=== PATIENT | male | born 2005 | race Caucasian/White ===

== ENCOUNTER 2025-04-12 12:42 | Emergency (ER) | payer BC, SELFPAY ==
[2025-04-12 12:45] VITALS: BP 124/72; PULSE 72; TEMP 36.8; O2SAT 98; BMI 18.4
--- NOTE | 2025-04-12 13:18 | ED_ITS ---
HPI - Back Pain/Injury General: Chief Complaint: Back Pain/Injury Stated Complaint: lower back pain Time Seen by Provider: 04/12/25 12:47 Source: patient Mode of arrival: ambulatory Limitations: no limitations History of Present Illness: Patient is a 19-year-old male who presents to ED today for evaluation of lower back pain and a possible hematoma. 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 States he immediately noticed some lower back pain but states that is not uncommon as he is often thrown from bulls. He states about 2 days ago he noticed a lump to his lower back and decided to seek medical evaluation. He is still having some discomfort to his lower back. He has been ambulatory without difficulty or assistance since the injury. He is not complaining of numbness, tingling, loss of sensation to his legs or leg weakness. He is not complaining of abdominal pain. MD elicited complaint: back pain Pertinent past history: recent trauma Onset (ago): day(s) Timing: constant Severity: moderate Similar Symptoms Previously: No Location: lumbar spine Radiation: none Relieving factors: none Context: fall Associated symptoms: Reports no associated symptoms; Deny abdominal pain or fever(s) Work related injury: No Related Data Allergies Allergy/AdvReac Type Severity Reaction Status Date / Time fentanyl Allergy Unknown Verified 04/12/25 12:50 Review of Systems Const: Denies: fever(s) Card: Denies: chest pain Resp: Denies: dyspnea GI: Denies: abdominal pain Musc: Reports: back pain; Denies: neck pain, extremity pain or joint pain Neuro: Denies: headache(s) or dizziness Physical Exam Const: COMMON NORMALS: no acute distress, average body habitus, patient oriented x3, no limitations, healthy appearing, alert and well nourished Neck/C-Spine: COMMON NORMALS: full ROM CERVICAL SPINE: No Cervical spine tenderness Chest: COMMONS NORMALS: normal inspection of the chest and normal palpation of entire chest wall Resp: COMMON NORMALS: normal respiratory effort and clear to auscultation bilaterally AUSCULTATION: clear to auscultation bilaterally Cardio: COMMON NORMALS: regular rate and regular rhythm RATE: regular rate RHYTHM: regular rhythm GI: COMMON NORMALS: Normal to inspection, nondistended, normoactive bowel sounds present, Soft to palpation, non-tender and no masses PALPATION: Yes Soft to palpation Back/Pelvis: COMMON NORMALS: thoraco-lumbar ROM normal and straight leg raise negative bilaterally THORACIC SPINE/UPPER BACK: No thoracic spinal tenderness LUMBAR SPINE/LOWER BACK: Yes lumbar spinal tenderness and Yes other soft tissue findings (lower lumbar hematoma; no erythema/ecchymosis present) PELVIS: Yes buttocks normal and No sciatic notch tenderness SACROILIAC JOINTS: Yes SI joints normal SACRUM: no tenderness COCCYX: no tenderness Extremity: GENERAL: Yes normal exam except as noted Neuro: COMMON NORMALS: patient oriented x3, moves all extremities, no focal motor deficits, no sensory deficits noted and gait normal SENSORIUM/ORIENTATION: Yes alert GAIT: Yes Normal gait present MOTOR EXAM: 5/5 motor strength present throughout Course Vital Signs: Vital signs: Vital Signs Temperature 98.2 F 04/12/25 12:45 Pulse Rate 72 04/12/25 12:45 Blood Pressure 124/72 04/12/25 12:45 Pulse Oximetry 98 04/12/25 12:45 Oxygen Delivery Me thod Room Air 04/12/25 12:45 MDM - Back Pain/Injury Medical Decision Making XR of lumbar spine obtained and negative for acute bony injury. Area and concern most likely is a hematoma. Less likely due to provided history would be sebaceous cyst, lipoma, abscess, seroma. Conservative therapies discussed. He can follow-up with primary care if symptoms do not seem to improve over the next 1 to 2 weeks. Labs Radiology Impressions Lumbar Spine X-Ray 04/12/25 13:27 Impression: Negative lumbar spine. All radiology interpretation(s) finalized by discharge Discharge Plan Discharge Patient Disposition: Home Clinical Impression: Lumbar muscle hematoma Qualifiers: Encounter type: initial encounter Qualified Code(s): S30.0XXA - Contusion of lower back and pelvis, initial encounter Condition: Stable Discharge Orders: Discharge ED (Routine); Ordered 04/12/25 Ordered By: Reema Boston Patient Instructions: Patient Portal & Francesca Instructions Activity Restrictions/Additional Instructions: As we discussed, x-rays of your lower back were normal. You may apply ice to the area of swelling. Please follow-up with primary care in 1 to 2 weeks if pain is not improving or if area of swelling is not starting to decrease. 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
--- NOTE | 2025-04-12 13:27 | XR_ITS ---
WS: [id number] Lumbar spine, AP and lateral views, 04/12/2025 Clinical Data: low back injury/fell from bull, hematoma Comparison: None. Findings: No compression fractures or subluxation is seen. No disc space narrowing is seen. The transverse processes and SI joints are normal. XR/XR lumbar spine 2-3V* [id number] Impression: Negative lumbar spine.
== END 2025-04-12 14:05 | disposition home or self-care (01) ==
PROVIDERS: Emergency Provider Physician Assistant
DX: S30.0XXA Contusion of lower back and pelvis, initial encounter (principal); V80.018A Animal-rider injured by fall from or being thrown from other animal in noncollision accident, initial encounter
CPT/HCPCS: 72100; 99283

== ENCOUNTER 2025-05-06 11:37 | Emergency (ER) | payer BC, SELFPAY ==
[2025-05-06 12:13] VITALS: BP 134/75; PULSE 76; RESP 16; TEMP 36.7; O2SAT 100; BMI 22.1
--- NOTE | 2025-05-06 12:29 | ED_ITS ---
HPI - Abdominal Pain 2 General: Chief Complaint: Abdominal Pain Stated Complaint: hit in the Stomach by a pipe Time Seen by Provider: 05/06/25 11:38 History of Present Illness: 19-year-old male who was hit by a pipe i n the right upper quadrant. 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 As the cow backed up it created a lever with that type and the end nearest him swung around and caught him in the right upper quadrant. He was knocked to the ground. Is complaining of some moderate abdominal discomfort he has not had any vomiting. He has been very nauseous. Denies any chest pain or abdominal pain denies any other injuries when he was thrown to the ground he did not strike his head and he did not lose consciousness Associated Symptoms: Reports nausea; Denies chills, coffee ground emesis, dysuria, fever(s), hematemesis and vomiting Related Data Home Medications ?Medication ?Instructions ?Recorded ?Confirmed No Known Home Medications 05/06/2504/25 Allergies Allergy/AdvReac Type Severity Reaction Status Date / Time fentanyl Allergy Unknown Verified 04/12/25 12:50 Review of Systems 2 Const: Denies: fever(s) or chills Card: Denies: chest pain Resp: Denies: dyspnea GI: Reports: abdominal pain and nausea; Denies: vomiting, hematemesis or coffee ground emesis : Denies: dysuria, urinary frequency or urinary urgency Musc: Denies: neck pain or back pain Skin/Breast: Denies: rash Physical Exam 2 Const: GENERAL APPEARANCE: cooperative ORIENTATION/CONSCIOUSNESS: Yes awake, Yes oriented to person, Yes oriented to place and Yes oriented to time HENMT: COMMON NORMALS: normocephalic, atraumatic and hearing grossly normal bilaterally HEAD & SCALP: normocephalic and atraumatic Resp: COMMON NORMALS: normal respiratory effort, No retractions, No use of accessory muscles and clear to auscultation bilaterally AUSCULTATION: clear to auscultation bilaterally Cardio: COMMON NORMALS: regular rate, regular rhythm and No murmurs present (Cardio) RATE: regular rate RHYTHM: regular rhythm GI: COMMON NORMALS: No hepatosplenomegaly present AUSCULTATION: Yes normoactive bowel sounds PALPATION: Yes Tenderness to palpation present (GI) (Diffuse), Yes Guarding due to palpation present (GI) and Yes No hepatosplenomegaly present OTHER: No bruising or laceration to the abdominal wall Extremity: COMMON NORMALS: normal to inspection, capillary refill normal, no clubbing, cyanosis or edema, no calf tenderness and no pedal edema Neuro: SENSORIUM/ORIENTATION: Yes oriented to person, Yes oriented to place and Yes oriented to time Skin: COMMON NORMALS: no rashes or lesions noted GENERAL SKIN EXAM: no rashes or lesions noted Course 2 Vital Signs: Vital signs: Vital Signs Temperature 98.1 F 05/06/25 12:13 Pulse Rate 71 05/06/25 14:45 Respiratory Rate 16 05/06/25 12:13 Blood Pressure 125/61 05/06/25 14:45 Pulse Oximetry 96 05/06/25 14:45 Oxygen Delivery Me thod Room Air 05/06/25 12:13 MDM - Abdominal Pain Medical Decision Making Patient has acute surgical abdomen on exam CT shows grade 4 laceration of the liver. He was given TXA typed and crossed and remained stable while here. Made arrangements for transfer to trauma services at [facility] in [place]. Patient is stable to time of transfer he is received initial TXA loading dose and is receiving infusion. Patient transferred via air ambulance. Medical Records I reviewed the patient's medical records. Lab Data I reviewed the patient's lab results. 05/06/25 12:37 05/06/25 12:37 Labs/Radiology: Radiology Impressions Abdomen/Pelvis CT 05/06/25 12:32 IMPRESSION: 1. Extensive complex RIGHT hepatic liver laceration approximately grade 4 with laceration completely traversing the RIGHT hepatic lobe. Small punctate areas of active hemorrhage peripherally involving the hepatic veins. Portal vein appears intact. 2. Small amount of blood products at the tip of the RIGHT hepatic lobe. Moderate amount of free fluid in the pelvis presumably hemorrhage. 3. No visualized rib fractures. Edema along the RIGHT abdominal wall laterally. 4. Normal spleen. 5. No other acute findings Notified Donavan Palomo DO at 05/06/2025 1:54 PM. Laboratory Results WBC 14.62 10^3/uL (4.5-13.0) H 05/06/25 12:37 RBC 4.63 10^6/uL (3.85-5.65) 05/06/25 12:37 Hgb 13.40 g/dL (13.2-15.6) 05/06/25 12:37 Hct 40.7 % (37-53) 05/06/25 12:37 MCV 87.9 fl (82-101) 05/06/25 12:37 MCH 28.9 pg (27-33) 05/06/25 12:37 MCHC 32.9 g/dL (30-55) 05/06/25 12:37 RDW 13.3 % (12.1-15.1) 05/06/25 12:37 Plt Count 234 10^3/cmm (157-399) 05/06/25 12:37 MPV 10.6 fL (7.4-10.4) H 05/06/25 12:37 Neut % (Auto) 81.3 % 05/06/25 12:37 Lymph % (Auto) 9.4 % 05/06/25 12:37 Runnels % (Auto) 8.0 % 05/06/25 12:37 Eos % (Auto) 0.5 % 05/06/25 12:37 Baso % (Auto) 0.3 % 05/06/25 12:37 Neut # (Auto) 11.88 10^3/uL (1.8-8.0) H 05/06/25 12:37 Lymph # (Auto) 1.4 10^3/uL (1.5-6.5) L 05/06/25 12:37 Runnels # (Auto) 1.2 10^3/uL (0.2-0.9) H 05/06/25 12:37 Eos # (Auto) 0.1 10^3/uL (0.0-0.8) 05/06/25 12:37 Baso # (Auto) 0.1 10^3/uL (0.0-0.1) 05/06/25 12:37 Nucleated RBC % (auto) 0 % 05/06/25 12:37 Nucleated RBCs # 0.0 /100WBC 05/06/25 12:37 Sodium 139 mmol/L (136-145) 05/06/25 12:37 Potassium 3.6 mmol/L (3.5-5.1) 05/06/25 12:37 Chloride 99 mmol/L (98-107) 05/06/25 12:37 Carbon Dioxide 23 mmol/L (22-29) 05/06/25 12:37 Anion Gap 20.6 (5-19) H 05/06/25 12:37 BUN 7 mg/dL (6-20) 05/06/25 12:37 Creatinine 0.9 mg/dL (0.7-1.2) 05/06/25 12:37 GFR Calculation 108.7 mL/min (90-130) 05/06/25 12:37 Glucose 135 mg/dL (65-115) H 05/06/25 12:37 Calculated Osmolality 288 mOsm/kg (285-295) 05/06/25 12:37 Calcium 9.1 mg/dL (8.5-10.5) 05/06/25 12:37 Total Bilirubin 0.6 mg/dL (0.15-1.2) 05/06/25 12:37 AST 136 U/L (0-40) H 05/06/25 12:37 ALT 130 U/L (0-41) H 05/06/25 12:37 Alkaline Phosphatase 112 U/L (40-130) 05/06/25 12:37 Total Protein 7.3 g/dL (6.6-8.7) 05/06/25 12:37 Albumin 4.5 g/dL (3.5-5.2) 05/06/25 12:37 Globulin 2.8 g/dL (1.3-4.6) 05/06/25 12:37 Lipase 26 U/L (13-60) 05/06/25 12:37 Urine Color Yellow (Yellow) 05/06/25 13:35 Urine Appearance Clear (CLEAR) 05/06/25 13:35 Urine pH 6.5 (5-7) 05/06/25 13:35 Ur Specific Dougherty 1.041 (1.005-1.030) H 05/06/25 13:35 Urine Protein 1+ (Negative) A 05/06/25 13:35 Urine Glucose (UA) Negative (Normal) 05/06/25 13:35 Urine Ketones Trace (Negative) 05/06/25 13:35 Urine Blood Non-haemolysed trace (Negative) 05/06/25 13:35 Urine Nitrate Negative (Negative) 05/06/25 13:35 Urine Bilirubin Negative (Negative) 05/06/25 13:35 Urine Urobilinogen 1.0 mg/dL (Negative) 05/06/25 13:35 Ur Leukocyte Esterase Negative (Negative) 05/06/25 13:35 Urine RBC 3-5 /hpf (0-2) 05/06/25 13:35 Urine WBC 0-5 /hpf (0-5) 05/06/25 13:35 Ur Squamous Epith Cells 0-5 /hpf (0-5) 05/06/25 13:35 Amorphous Sediment Not Reportable 05/06/25 13:35 Urine Bacteria None seen /hpf (NONE) 05/06/25 13:35 Hyaline Casts 4.11 /lpf 05/06/25 13:35 Blood Type A Positive 05/06/25 13:55 Rho(D) Type Rh positive 05/06/25 13:55 Antibody Screen Negative 05/06/25 13:55 All radiology interpretation(s) finalized by discharge Discharge Plan Discharge Patient Disposition: Xfer Short-Term Hosp Clinical Impression: Liver laceration, grade IV, without open wound into cavity Condition: Stable Print Language: Setswana Coding 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
--- NOTE | 2025-05-06 12:32 | CT_ITS ---
WS: [id number] CT ABDOMEN PELVIS TECHNIQUE: Contrast-enhanced CT of the abdomen and pelvis with coronal and sagittal reformatted images. CLINICAL INFORMATION: abd pain/trauma COMPARISON: None. DLP: 318.[address] scans at [facility] use at least one of these dose optimization techniques: automated exposure control; mA and/or kV adjustment per patient size (includes targeted exams where dose is matched to clinical indication); or iterative reconstruction. FINDINGS: Extensive right hepatic laceration extending from the capsule RIGHT hepatic lobe to the gallbladder fossa. The laceration completely traverses the RIGHT hepatic lobe. Small punctate areas of hemorrhage are seen involving the hepatic veins peripherally in the RIGHT hepatic lobe. Portal vein appears grossly intact. Edema within the RIGHT abdominal wall. Small amount of blood products at the tip of the RIGHT hepatic lobe with moderate free fluid presumed blood products in the pelvis. Normal spleen. No visualized RIGHT rib fractures. Lung bases are well aerated. Normal GE junction. Normal pancreatic parenchymal enhancement. Portal veins and splenic vein appear patent. Normal caliber abdominal aorta. Normal renal parenchymal enhancement. CT/CT abdomen pelvis w con* [id number] IMPRESSION: 1. Extensive complex RIGHT hepatic liver laceration approximately grade 4 with laceration completely traversing the RIGHT hepatic lobe. Small punctate areas of active hemorrhage peripherally involving the hepatic veins. Portal vein appe ars intact. 2. Small amount of blood products at the tip of the RIGHT hepatic lobe. Modera te amount of free fluid in the pelvis presumably hemorrhage. 3. No visualized rib fractures. Edema along the RIGHT abdominal wall laterally . 4. Normal spleen. 5. No other acute findings Notified Donavan Palomo DO at 05/06/2025 1:54 PM.
[2025-05-06 12:41] LABS: Hematocrit 40.7 % (37-53); Hemoglobin 13.40 g/dL (13.2-15.6); Mean Corpuscular HGB Conc 32.9 g/dL (30-55); Mean Corpuscular Hemoglobin 28.9 pg (27-33); Mean Corpuscular Volume 87.9 fl (82-101); Nucleated Red Blood Cells % 0 %; Platelet Count 234 10^3/cmm (157-399); Red Blood Count 4.63 10^6/uL (3.85-5.65); White Blood Count 14.62 10^3/uL (4.5-13.0)
[2025-05-06 13:00] VITALS: BP 124/72; PULSE 68; O2SAT 100
[2025-05-06] MEDS: iohexol 350 mg/mL 500 mL Btl (per mL) IV (13:26)
[2025-05-06 13:52] LABS: Glucose Urine UA Negative (Normal); Nitrate Urine Negative (Negative)
[2025-05-06 13:57] LABS: Add Urine Microscopic? YES
[2025-05-06] MEDS: tranexamic acid 1,000 MG/100 ML PREMIX 600 MG IV (13:57)
[2025-05-06 14:00] VITALS: BP 129/83; PULSE 94; O2SAT 97
[2025-05-06 14:09] LABS: Alanine Aminotransferase 130 U/L (0-41); Albumin Level 4.5 g/dL (3.5-5.2); Alkaline Phosphatase 112 U/L (40-130); Anion Gap 20.6 (5-19); Aspartate Amino Transferase 136 U/L (0-40); Blood Urea Nitrogen 7 mg/dL (6-20); Calcium 9.1 mg/dL (8.5-10.5); Carbon Dioxide 23 mmol/L (22-29); Chloride 99 mmol/L (98-107); Creatinine Clr Calc Pharmacy 130.0294; Globulin 2.8 g/dL (1.3-4.6); Glucose 135 mg/dL (65-115); Lipase 26 U/L (13-60); Osmolality Calculated 288 mOsm/kg (285-295); Potassium 3.6 mmol/L (3.5-5.1); Sodium 139 mmol/L (136-145); Total Protein 7.3 g/dL (6.6-8.7)
[2025-05-06 14:24] LABS: Specific Gravity, Urine 1.041 (1.005-1.030)
[2025-05-06 14:30] VITALS: BP 125/61; PULSE 71; O2SAT 96
[2025-05-06 14:45] VITALS: BP 125/61; PULSE 71; O2SAT 96
[2025-05-06] MEDS: tranexamic acid 1,000 MG/100 ML PREMIX 12.5 MG IV (14:50)
== END 2025-05-06 14:45 | disposition short-term general hospital (02) ==
PROVIDERS: Emergency Provider Family Medicine
DX: S36.116A Major laceration of liver, initial encounter (principal); W22.8XXA Striking against or struck by other objects, initial encounter
CPT/HCPCS: 36415; 74177; 80053; 81001; 83690; 85025; 86850; 86900; 99285; J9999